=== PATIENT | female | born 1985 | race Caucasian/White ===

== ENCOUNTER → 2022-03-22 09:53 | Outpatient (CLI) | payer OTHER, SELFPAY ==
--- NOTE | 2022-03-22 | DI.US.S_ITS ---
PROCEDURE: US PELVIC COMPLETE INDICATIONS: Pelvic and perineal pain TECHNIQUE: Real-time scanning was performed of the pelvic organs, with image documentation. Additional endovaginal scanning was necessary due to incomplete visualization of the adnexal and endometrial structures by transabdominal scanning. COMPARISON: None. FINDINGS: Uterus: Uterus is retroverted and normal in size at 7.9 x 4.6 x 6.2 cm. The myometrium is homogeneous. The endometrium measures 9 mm combined thickness. There is 1.1 x 0.8 x 0.9 cm intramural cyst in the posterior uterine wall at midline. Ovaries: The right ovary measures 0.8 x 2.0 x 0.8 cm, with a calculated ovarian volume of 0.6 cc. The left ovary measures 3.1 x 4.4 x 2.9 cm, with a calculated ovarian volume of 20.5 cc. The ovaries have a normal sonographic appearance. There is a 3.3 x 2.3 x 2.6 cm simple cyst in left ovary. Less than 12 follicles can be seen in each ovary. No adnexal masses are seen. Other: No pathologic free abdominal or pelvic fluid. IMPRESSION: 1. A small intramural fibroid in uterus. 2. A 3.3 x 2.3 x 2.6 cm simple cyst in the left ovary. Consider ultrasound follow-up in 6-12 weeks if clinical symptoms persist. 3. No free fluid in pelvis. We strive to produce accurate, complete, and clear reports of imaging services. To assist us in improving patient care, this report was composed using standard report templates and voice recognition software. Therefore, it may contain abnormal punctuation, insertions and/or omissions. Occasional wrong-word or sound-alike substitutions may occur. Though we review the report and make efforts to correct it, we do recommend that the report be read carefully in proper context to recognize any text inaccuracies. Dictated by: Kal Birmingham M.D. on 03/22/2022 at 12:01 Approved by: Kal Birmingham M.D. on 03/22/2022 at 12:05
== END ==
PROVIDERS: PCP Family Medicine; Referring Provider Physician Assistant Medical; Visit Provider Physician Assistant Medical
DX: D25.1 Intramural leiomyoma of uterus (principal); N83.292 Other ovarian cyst, left side; R10.2 Pelvic and perineal pain
CPT/HCPCS: 76830; 76856; 93975

== ENCOUNTER 2022-08-23 09:53 | Day surgery (SDC) | payer OTHER, SELFPAY ==
[2022-08-18 12:56] VITALS: BMI 29.9
[2022-08-23] VITALS (9 sets, daily range): BP systolic 115–138; BP diastolic 72–85; PULSE 65–115; RESP 13–18; TEMP 36.3–36.6; O2SAT 95–100; BMI 28.3
--- NOTE | 2022-08-23 | PATH_ITS ---
[facility] Accession Number: [id number] No. of containers..01 Tissue . 01 Material submitted: . gallbladder - GALLBLADDER . 01 Diagnosis: Gallbladder, Cholecystectomy: Cholelithiasis with mild chronic cholecystitis. No evidence of neoplasm. MRV 08/31/2022 1526 Local . 01 Electronically signed: . Jc Ballard MD, PhD, Pathologist NPI- [id number] . 01 Gross description: . The specimen is received in formalin labeled with the patient's name, , and gallbladder consists of an intact gallbladder measuring 9.8 x 3.9 x 3.5 cm with an unremarkable external surface. The cystic duct is received patent, is inked blue, and no pericystic lymph node is identified. The lumen is filled with orange to brown, faceted calculi measuring up to 1.7 cm in greatest dimension grossly obstructing the cystic duct, and admixed with dark green mucoid bile. The mucosa is green and trabecula with no pinpoint yellow areas, polyps, or lesions identified. The castañeda average 0.1 cm thick. Exhibit Cleaner sections to include the cystic duct margin and full-thickness sections are submitted in cassette A1. ([id number]) /MRV 08/26/2022 1547 Local . 01 Pathologist provided ICD-10: K80.10 . 01 CPT . 487244 Specimen Comment: A courtesy copy of this report has been sent to [phone] Performed at: 01 [facility] [address] [place] [address], [place], [place] [id number] MD Ramsey Wellington MD Phone: [phone]
[2022-08-23] MEDS: SCOPOLAMINE 1 PATCH TOP (13:22)
[2022-08-23] MEDS: LACTATED RINGERS 1,000 ML 42 ML IV (13:24)
--- NOTE | 2022-08-23 15:26 | P.HP_ITS ---
History of Present Illness History of Present Illness Date Patient Seen: 08/23/22 Time Patient Seen: 15:26 Chief complaint: [facility] Narrative: Lucita is a 29-year-old woman with cholelithiasis. We discussed her condition in June over the telephone. Please see the telephone encounter for details. Since then, she has not had any major painful episodes. [facility] Medical History (Updated 08/18/22 @ 12:58 by Rosemarie Diaz RN) Anxiety Family history of breast cancer in first degree relative History of COVID-19 (10/2021) Surgical History (Updated 08/18/22 @ 12:59 by Rosemarie Diaz RN) H/O section History of laparoscopy Hx of abdominoplasty (2015) S/P tubal ligation Social History household members: spouse Smoking Status: Never smoker alcohol intake: current Meds Home Medications and Allergies Home Medications Medication Instructions Recorded Confirmed Type norethindrone-e.estradiol 1 tab PO DAILY 12/23/20 06/22/22 History triphasic 0.5 mg/0.75 mg/1 mg-35 mcg tablet (Alyacen (28)) spironolactone 25 mg tablet 25 mg PO DAILY 12/23/20 06/22/22 History Allergies Allergy/AdvReac Type Severity Reaction Status Date / Time hydrocodone [From Vicodin] Allergy Tongue and Verified 08/22/22 13:33 facial swelling Sulfa (Sulfonamide Allergy Feels Verified 08/22/22 13:33 Antibiotics) like sunburn Exam Vital Signs (past 8 hours): - 08/23/22 13:07 Temperature 97.6 F Pulse Rate 75 Respiratory Rate 18 Blood Pressure 127/79 Pulse Oximetry 98 Oxygen Delivery Method Room Air Oxygen Delivery Method Room Air Const General: No acute distress GI Palpation: soft Assessment & Plan Assessment and plan (1) Cholelithiasis: Qualifiers: Cholelithiasis location: gallbladder Cholecystitis presence: without cholecystitis Biliary obstruction: without biliary obstruction Qualified Code(s): K80.20 - Calculus of gallbladder without cholecystitis without obstruction Status: Acute Plan Lucita is a 37-year-old woman with cholelithiasis. We reviewed the risks and benefits of laparoscopic cholecystectomy for cholelithiasis and she would like to proceed.
[2022-08-23] MEDS: CEFAZOLIN 2 GM/100 ML PREMIX 100 ML IV (16:01)
[2022-08-23] MEDS: ACETAMINOPHEN IV 1,000 MG/100 ML VIAL 400 MG IV (16:07)
--- NOTE | 2022-08-23 16:12 | SUR.OPER ---
Supine on padded OR bed, head on pillow, arms secured on padded arm boards at <90 degrees abduction, legs uncrossed, safety belt at thigh, tape over blanket over lower legs.
[2022-08-23] MEDS: BUPIVACAINE 0.5% (PF) 10 ML VIAL INJ (16:36)
[2022-08-23] MEDS: EPINEPHrine 1 MG/ML 0.15 MG INJ (16:36)
--- NOTE | 2022-08-23 17:04 | P.OP_ITS ---
Operative Date/Time/Diagnoses Date of procedure: 08/23/22 Time of procedure: 17:04 Pre-op diagnosis: Symptomatic cholelithiasis Post-op diagnosis: same Procedure & Clinicians Procedure: Laparoscopic cholecystectomy Same procedure as scheduled: Yes Surgeon: Celso Dhaliwal Career Counselor: Jared Marks Operative Notes Procedure in detail: The patient was given preoperative antibiotic. The patient was brought to the operating room, placed on the table in the supine position. General endotracheal anesthesia was induced. The abdomen was prepped and draped. A time-out was performed. We made a 1 cm infraumbilical incision. We dissected down to the base of the umbilical stalk using cautery. We grasped the umbilical stalk with a Ezra clamp to elevate the abdominal wall. We scored the fascia in the midline with cautery 1 cm. We pierced the peritoneum with a Peon clamp. The Michelle port was placed and the abdomen was insufflated to 15 mmHg. A 5 mm 30 degree laparoscopic was inserted. There was no evidence of any injury from the entry. Next, we placed 5 mm ports in the subxiphoid position and right upper quadrant at the midclavicular line and anterior axillary line. Patient was then positioned in reverse Trendelenburg and the table was tilted to the left. The gallbladder was grasped at the dome and retracted cephalad. The gallbladder was quite full of stones but was able to be grasped without decompression. We then dissected the cystic structures with a combination of hook cautery and blunt dissection. We obtained a critical view. We placed clips on the cystic duct and artery and divided the cystic duct and artery sharply between the clips. The gallbladder was then dissected off the liver and placed in a specimen retrieval bag. We irrigated the right upper quadrant and all the aspirate returned clear. We then removed the 5 mm ports under direct vision we removed the Michelle port. In order to extract the specimen we had to extend the fascial defect to about 3 cm. We then injected some local into the fascia and closed the fascia with 4 interrupted 0 Vicryl sutures. The skin incisions were closed with 4-0 Monocryl and Steri-Strips were applied. Band- Aids were applied over the Steri-Strips. EBL: 15 mL Specimen: Gallbladder Post-operative Condition: stable Disposition: PACU
[2022-08-23] MEDS: ONDANSETRON 4 MG/2 ML INJ IV (18:15)
[2022-08-23] MEDS: hydrOXYzine 50 MG/ML INJ 25 MG IM (18:54)
== END 2022-08-23 19:39 | disposition home or self-care (01) ==
PROVIDERS: PCP Family Medicine; Referring Provider Surgery; Visit Provider Surgery
PROC: 0FT44ZZ Resection of Gallbladder, Percutaneous Endoscopic Approach (ICD-10-PCS; CPT 47562; principal; 2022-08-23 13:45)
DX: K80.20 Calculus of gallbladder without cholecystitis without obstruction (principal)
CPT/HCPCS: 47562; J0131; J0171; J0690; J1100; J1170; J1885; J2250; J2405; J2704; J3010; J3410; J3490

== ENCOUNTER 2024-04-04 10:08 | Day surgery (SDC) | payer OTHER, SELFPAY ==
--- NOTE | 2024-04-04 | PATH_ITS ---
[facility] Accession Number: [id number] No. of containers..02 Tissue . 01 Material submitted: . PART A: duodenum - DUODENAL PART B: stomach - ANTRAL . 01 Diagnosis: Part A: DUODENAL: Duodenal mucosa with no diagnostic alterations. No active inflammation and no evidence of celiac disease. . Part B: ANTRAL: Gastric mucosa with mild chronic inflammation. No Helicobacter organisms identified. No intestinal metaplasia, dysplasia, or malignancy identified. STO 04/09/2024 160 Local . 01 Electronically signed: . Ramsey Wellington MD, Pathologist NPI- [id number] . 01 Gross description: . A. Received in formalin with two patient identifiers and duodenal biopsy, are two jimenez to yellow soft tissue fragments both measuring 0.3 cm in greatest dimension, submitted in A1. . B. Received in formalin with two patient identifiers and antral biopsy, is a single jimenez soft tissue fragment, 0.4 cm in greatest dimension, submitted in B1. ([id number]) /MRV 04/09/2024 1602 Local . 01 Microscopic: . Part B: ANTRAL: An immunohistochemical stain was performed to evaluate for Helicobacter organisms and is negative. The control stains appropriately. * This test was developed and the performance characteristics were validated by [facility]. It has not been cleared or approved by the Food and Drug Administration. . 01 Pathologist provided ICD-10: K29.50 . 01 CPT . 875847, 314112, E88848 Specimen Comment: A courtesy copy of this report has been sent to [phone] Performed at: [address] [facility], [place], [place] [id number] MD Ramsey Wellington MD Phone: [phone]
[2024-04-04] MEDS: SODIUM CHLORIDE 0.9% 1,000 ML 150 ML IV (10:23)
--- NOTE | 2024-04-04 10:37 | PM.HP.1 ---
History of Present Illness History of Present Illness Date Patient Seen: 04/04/24 Time Patient Seen: 10:37 Chief complaint: SDC Narrative: Lucita is a 39 year old woman here for EGD due to dysphagia. See office note for more details. [facility] History Anxiety Family history of breast cancer in first degree relative History of COVID-19 (10/2021) Surgical History H/O section History of laparoscopy Hx of abdominoplasty (2015) S/P tubal ligation Social History household members: spouse Smoking Status: Never smoker alcohol intake: current Meds Home Medications and Allergies Home Medications Medication Instructions Recorded Confirmed Type spironolactone 25 mg tablet 25 mg PO DAILY 12/23/20 02/12/24 History flibanserin 100 mg tablet (Addyi) 100 mg PO BEDTIME 02/12/24 02/12/24 History ketorolac 10 mg tablet 10 mg PO Q6H PRN 02/12/24 02/12/24 History omeprazole 40 mg capsule,delayed 40 mg PO DAILY 02/12/24 02/12/24 History release progesterone micronized 100 mg 100 mg PO QAM 02/12/24 02/12/24 History capsule omeprazole 40 mg capsule,delayed 40 mg PO QAM 04/04/24 04/04/24 History release Allergies Allergy/AdvReac Type Severity Reaction Status Date / Time hydrocodone [From Vicodin] Allergy Tongue and Verified 04/04/24 10:36 facial swelling Sulfa (Sulfonamide Allergy Feels Verified 04/04/24 10:36 Antibiotics) like sunburn Exam Const General: healthy appearing Resp Effort & Inspection: normal respiratory effort Assessment & Plan Assessment and plan (1) Dysphagia: Qualifiers: Dysphagia type: esophageal phase Qualified Code(s): R13.19 - Other dysphagia Status: Acute Plan EGD Time-Based Coding :: [TOTAL MINUTES] spent with patient and on the chart (including review of chart, obtaining history, exam, reviewing outside data, placing orders, documenting exam and treatment plan, and counseling patient) on [DATE].
[2024-04-04 10:39] VITALS: BP 115/75; PULSE 101; RESP 16; TEMP 36.6; O2SAT 98
--- NOTE | 2024-04-04 11:09 | PM.OP.EGD ---
Operative Date/Time/Diagnoses Date of procedure: 04/04/24 Time of procedure: 11:09 Pre-op diagnosis: Dysphagia Post-op diagnosis: same Procedure & Clinicians Study performed: Esophagogastroduodenoscopy Same procedure as scheduled: Yes Surgeon: Celso Dhaliwal Procedure Notes Procedure in detail: Surgeon: Celso Dhaliwal MD Anesthesia: Noemi Fernandez timeout was performed. A bite blocked was placed. The patient was positioned in the left lateral decubitus position. Anesthesia was administered. The endoscope was inserted through the bite block and passed through the esophagus and stomach and into the duodenum. The duodenal mucosa appeared normal. Random biopsies were taken from the duodenal mucosa with cold forceps. The scope was withdrawn into the duodenal bulb and no abnormalities were seen. The scope was withdrawn into the stomach. No gross abnormalities were seen. Random biopsies were taken from the antrum with cold forceps. The rest of the stomach was normal. The scope was retroflexed and no hiatal hernia was noted. The scope was withdrawn into the esophagus and no abnormalities were seen in the esophagus. The remainder of the esophagus was normal. The scope was withdrawn. The patient was awakened and brought to recovery. Sedation time: 4 minutes Findings: Grossly normal EGD Post-procedure Disposition: PACU
[2024-04-04 11:13] VITALS: BP 108/75; PULSE 86; RESP 16; TEMP 36.7; O2SAT 97
[2024-04-04 11:17] VITALS: BP 108/70; PULSE 86; RESP 16; O2SAT 98
[2024-04-04 11:23] VITALS: BP 112/70; PULSE 67; RESP 16; TEMP 36.6; O2SAT 98
== END 2024-04-04 11:44 | disposition home or self-care (01) ==
PROVIDERS: PCP Family Medicine; Referring Provider Surgery; Visit Provider Surgery
PROC: 0DJ08ZZ Inspection of Upper Intestinal Tract, Via Natural or Artificial Opening Endoscopic (ICD-10-PCS; CPT 43235; principal; 2024-04-04 11:00)
DX: R13.10 Dysphagia, unspecified (principal)
CPT/HCPCS: 43235; 36415; J2704

== ENCOUNTER → 2024-05-06 14:32 | Outpatient (CLI) | payer OTHER, SELFPAY ==
[2024-05-06 15:00] LABS: Add Manual Diff / Slide Review NO; Basophils Absolute Auto 100 /uL (0-100); Basophils Percent Auto 0.7 % (0-2); Eosinophils Absolute Auto 200 /uL (0-450); Eosinophils Percent Auto 2.2 % (2-4); Hemoglobin 11.6 g/dL (12.0-16.0); Lymphocytes Absolute Auto 2900 /uL (1100-4500); Lymphocytes Percent Auto 32.3 % (25-40); Mean Corpuscular HGB Conc 34.2 % (30-36); Mean Corpuscular Hemoglobin 29.5 PG (26-34); Mean Corpuscular Volume 86.3 fL (80-100); Monocytes Absolute Auto 500 /uL (0-900); Monocytes Percent Auto 5.8 % (3-14); Neutrophils Absolute Auto 5300 /uL (1500-7000); Platelet Count 366 X10^3/uL (150-400); Red Blood Cell Count 3.94 X10^6/uL (4.0-5.2); Red Cell Distribution Width 13.3 % (11.6-14.8)
[2024-05-06 15:36] LABS: Free T4, Direct Thyroxine 0.82 ng/dL (0.78-2.19)
[2024-05-06 15:50] LABS: Thyroid Stimulating Hormone 1.63 uIU/mL (0.47-4.68)
== END ==
PROVIDERS: PCP Family Medicine; Referring Provider Obstetrics & Gynecology; Visit Provider Obstetrics & Gynecology
DX: N93.9 Abnormal uterine and vaginal bleeding, unspecified (principal)
CPT/HCPCS: 36415; 84439; 84443; 85025

== ENCOUNTER 2024-05-16 12:56 | Emergency (ER) | payer OTHER, SELFPAY ==
[2024-05-16 13:05] VITALS: BP 138/89; PULSE 97; RESP 19; O2SAT 99; BMI 31.6
[2024-05-16 13:12] VITALS: TEMP 36.8
[2024-05-16 13:43] LABS: BUN Creatinine Ratio 13.9 (6-22); Blood Urea Nitrogen 11 mg/dL (7-17); Calcium 8.6 mg/dL (8.4-10.2); Carbon Dioxide 20 mmol/L (22-32); Chloride 107 mmol/L (98-107); Estimated Glomerular Filt Rate > 60 mL/min (>60); Glucose 128 mg/dL (70-100); HEMOLYSIS < 15 (0-50); Potassium 3.9 mmol/L (3.4-5.1); Sodium 135 mmol/L (137-145)
[2024-05-16 13:48] LABS: Add Manual Diff / Slide Review NO; Basophils Absolute Auto 100 /uL (0-100); Basophils Percent Auto 0.6 % (0-2); Eosinophils Absolute Auto 100 /uL (0-450); Eosinophils Percent Auto 0.8 % (2-4); Hematocrit 30.9 % (36-46); Hemoglobin 10.4 g/dL (12.0-16.0); Lymphocytes Absolute Auto 2800 /uL (1100-4500); Mean Corpuscular HGB Conc 33.8 % (30-36); Mean Corpuscular Hemoglobin 29.4 PG (26-34); Mean Corpuscular Volume 87.1 fL (80-100); Monocytes Absolute Auto 400 /uL (0-900); Neutrophils Absolute Auto 7400 /uL (1500-7000); Neutrophils Percent Auto 68.6 % (50-75); Platelet Count 336 X10^3/uL (150-400); Red Blood Cell Count 3.55 X10^6/uL (4.0-5.2); Red Cell Distribution Width 13.8 % (11.6-14.8); White Blood Cell Count 10.8 X10^3/uL (4.5-11.0)
[2024-05-16 13:52] LABS: Bilirubin Urine UA NEGATIVE (NEGATIVE); Color Urine UA RED; Glucose Urine UA NEGATIVE (Negative); Ketones Urine UA NEGATIVE (NEGATIVE); Leukocyte Esterase Urine UA NEGATIVE (NEGATIVE); Nitrite Urine UA NEGATIVE (Negative); Occult Blood Urine UA 3+ (Negative); Protein Urine UA 3+ (Negative); Specific Gravity Urine UA >=1.030 (1.000-1.035); Urobilinogen Urine UA 0.2 E.U./dL (0.2)
[2024-05-16 13:55] LABS: Appearance Urine UA TURBID
[2024-05-16 13:55] LABS: INR 1.1 (0.9-1.3)
[2024-05-16 13:56] LABS: Bacteria Urine Few (2-10); Culture Indicated Urine Specimen Cultured; RBC Urine >100/HPF (0-5/HPF); Squamous Epithelial Cell Urine 1-5 /HPF (0-5/HPF); Urine Volume 10mL (spun); WBC Urine 5-10/HPF (0-5/HPF)
[2024-05-16 13:58] LABS: PTT Partial Thromboplastin Tim 34 SECONDS (25.1-36.5)
--- NOTE | 2024-05-16 17:20 | ED_ITS ---
HPI - Female Genitourinary <Renetta West PA-C - Last Filed: 05/16/24 20:57> General Chief complaint: Vaginal Bleeding Stated complaint: vaginal bleeding [id number] Time Seen by Provider: 05/16/24 16:13 Source: patient Mode of arrival: Ambulatory History of Present Illness HPI Narrative: Ms. Grimes is a very pleasant 39-year-old female with a past medical history of endometriosis, PCOS, AUB, ovarian cysts, cholecystectomy who presents to the emergency department for heavy vaginal bleeding x [address] Leisa Castro. She has irregular menstrual periods however this month she has had heavy bleeding, soaking through a pad or tampon greater than every hour, clots, lower abdominal cramping. She saw her OBGYN on 05/06/2024 and she went on 1 week of medroxyprogesterone at that time, it did not work so on Monday this week she went on a 3 day OCP taper. States that when she took 3 control pills on the 1st day the bleeding decreased for a few hours however since then the bleeding has gotten heavy again. At this point she would like hysterectomy. She is feeling fatigued, lightheaded, exhausted. Denies dysuria, vaginal discharge, concern for STD, constipation, diarrhea, shortness of breath, fevers, chills. History of cholecystectomy, multiple endometriosis laparoscopies, 3 C sections. Related Data Home Medications Medication Instructions Recorded Confirmed spironolactone 25 mg tablet 25 mg PO DAILY 12/23/20 05/06/24 flibanserin 100 mg tablet (Addyi) 100 mg PO BEDTIME 02/12/24 05/06/24 ketorolac 10 mg tablet 10 mg PO Q6H PRN 02/12/24 05/06/24 omeprazole 40 mg capsule,delayed 40 mg PO DAILY 02/12/24 05/06/24 release progesterone micronized 100 mg 100 mg PO QAM 02/12/24 05/06/24 capsule omeprazole 40 mg capsule,delayed 40 mg PO QAM 04/04/24 05/06/24 release Previous Rx's Medication Instructions Recorded medroxyprogesterone 10 mg tablet 10 mg PO DAILY #10 tabs 05/06/24 naproxen 500 mg tablet 500 mg PO BID #14 tabs 05/06/24 norgestimate 0.25 mg-ethinyl 1 tab PO DAILY #84 tabs 05/14/24 estradiol 35 mcg tablet (Sprintec (28)) ondansetron 4 mg disintegrating 4 mg PO Q6H PRN nausea and 05/14/24 tablet vomiting #7 tabs Allergies Allergy/AdvReac Type Severity Reaction Status Date / Time hydrocodone [From Vicodin] Allergy Tongue and Verified 05/06/24 13:36 facial swelling Sulfa (Sulfonamide Allergy Feels Verified 05/06/24 13:36 Antibiotics) like sunburn Review of Systems <Renetta West PA-C - Last Filed: 05/16/24 20:57> Review of Systems ROS Unobtainable: All systems reviewed & are unremarkable except as noted in HPI and below Patient History <Renetta West PA-C - Last Filed: 05/16/24 20:57> Medical History Abnormal uterine bleeding (AUB) History of COVID-19 (10/2021) Anxiety Family history of breast cancer in first degree relative Surgical History History of laparoscopy Hx of abdominoplasty (2015) S/P tubal ligation H/O section Exam <Renetta West PA-C - Last Filed: 05/16/24 20:57> Narrative Exam Narrative: GENERAL: 39 year old patient appears stated age. Well-developed patient, in no acute distress. HEAD: Atraumatic. Normocephalic. NECK: Trachea midline. Cervical ROM intact. CARDIOVASCULAR: Regular rate and rhythm. RESPIRATORY: ?Nonlabored respirations. ?Speaking in clear, full sentences. ?Clear to auscultation. GASTROINTESTINAL: Abdomen soft, non-tender, nondistended. Normal bowel sounds. Surgical scars present. Pelvic: Patient gave verbal consent for pelvic exam. Nurse Kumari chaperoned exam. Two scopettes with menstrual blood and 1 cm clot removed from vaginal vault. After bearing down, the patient had about half of a scopette of slow ooze bleeding from os. No tenderness on bimanual exam, no cervical motion tenderness. EXTREMITIES: No edema or joint tenderness. BACK: NO CVA tenderness NEURO: AOx3. ?Clear speech. ?Moves all 4 extremities appropriately. SKIN: No rash or erythema of visible areas Initial Vital Signs Initial Vital Signs: Vital Signs Pulse Rate 97 H 05/16/24 13:05 Respiratory Rate 19 05/16/24 13:05 Blood Pressure 138/89 05/16/24 13:05 Pulse Oximetry 99 05/16/24 13:05 Oxygen Delivery Method Room Air 05/16/24 13:05 <Juan Luis Trevino MD - Last Filed: 05/17/24 05:21> Initial Vital Signs Initial Vital Signs: Vital Signs Pulse Rate 97 H 05/16/24 13:05 Respiratory Rate 19 05/16/24 13:05 Blood Pressure 138/89 05/16/24 13:05 Pulse Oximetry 99 05/16/24 13:05 Oxygen Delivery Method Room Air 05/16/24 13:05 Course <Renetta West PA-C - Last Filed: 05/16/24 20:57> Orders Ordered: Discontinued Medications Tranexamic Acid 1,000 mg/ (Sodium Chloride) 100 mls @ 200 mls/hr IV NOW ONE Stop: 05/16/24 19:52 Last Infusion: 05/16/24 20:29 Dose: Infused Documented By: Admin: 05/16/24 19:45 Dose: 200 mls/hr Documented By: DAMION Ketorolac Tromethamine (Ketorolac 30 Mg/Ml Vial) 15 mg IV NOW ONE Stop: 05/16/24 17:51 Last Admin: 05/16/24 18:04 Dose: 15 mg Documented By: DAMION Ondansetron HCl (Ondansetron 4 Mg Odt Prepack) 1 bottle MISC DIRECTED ONE Stop: 05/16/24 20:31 Last Admin: 05/16/24 20:43 Dose: 1 bottle Documented By: DAMION Consultations Consultation #1: Discussed case with OBGYN on-call Dr. Naidu, transvaginal ultrasound results pending at this time however patient is trying to potentially make a Door home. Discussed the patient case, her physical exam, her lab work, her prior visit with Dr. Castro on 05/06/24. He recommends the patient receive 1000 mg of IV TXA in the emergency department at this time. Would then like her to take 3 OCPs at home tonight, 3 OCPs in the morning, and follow up in the clinic tomorrow. His staff will plan to call her for evaluation in the clinic tomorrow. Time: 19:05 Consultation #2: After transvaginal ultrasound results reported, I reached back out to OBGYN on- call Dr. Naidu. Discussed the transvaginal ultrasound report. No change in plan, he would like the patient to be seen in office tomorrow. She has received TXA, and continue plan for 3 OCPs tonight and 3 OCPs in the morning. Time: 20:00 Vital Signs Vital signs: Vital Signs - 8 hr 05/16/24 13:05 05/16/24 13:12 Temperature 98.2 F Pulse Rate 97 H Respiratory Rate 19 Blood Pressure 138/89 Pulse Oximetry 99 Oxygen Delivery Method Room Air <Juan Luis Trevino MD - Last Filed: 05/17/24 05:21> Orders Ordered: Discontinued Medications Tranexamic Acid 1,000 mg/ (Sodium Chloride) 100 mls @ 200 mls/hr IV NOW ONE Stop: 05/16/24 19:52 Last Infusion: 05/16/24 20:29 Dose: Infused Documented By: Admin: 05/16/24 19:45 Dose: 200 mls/hr Documented By: DAMION Ketorolac Tromethamine (Ketorolac 30 Mg/Ml Vial) 15 mg IV NOW ONE Stop: 05/16/24 17:51 Last Admin: 05/16/24 18:04 Dose: 15 mg Documented By: DAMION Ondansetron HCl (Ondansetron 4 Mg Odt Prepack) 1 bottle MISC DIRECTED ONE Stop: 05/16/24 20:31 Last Admin: 05/16/24 20:43 Dose: 1 bottle Documented By: DAMION Vital Signs Vital signs: Vital Signs - 8 hr 05/16/24 13:05 05/16/24 13:12 Temperature 98.2 F Pulse Rate 97 H Respiratory Rate 19 Blood Pressure 138/89 Pulse Oximetry 99 Oxygen Delivery Method Room Air MDM - Female Genitourinary <Renetta West PA-C - Last Filed: 05/16/24 20:57> Medical Records Attestation: I reviewed the patient's medical records. Lab Data 05/16/24 13:20 05/16/24 13:20 Labs: Lab Results 05/16/24 05/16/24 Range/Units 13:20 13:30 WBC 10.8 (4.5-11.0) X10^3/uL RBC 3.55 L (4.0-5.2) X10^6/uL Hgb 10.4 L (12.0-16.0) g/dL Hct 30.9 L (36-46) % MCV 87.1 (80-100) fL MCH 29.4 (26-34) PG MCHC 33.8 (30-36) % RDW 13.8 (11.6-14.8) % Plt Count 336 (150-400) X10^3/uL Neut % (Auto) 68.6 (50-75) % Lymph % (Auto) 26.0 (25-40) % [place] % (Auto) 4.0 (3-14) % Eos % (Auto) 0.8 L (2-4) % Baso % (Auto) 0.6 (0-2) % Neut # (Auto) 7400 H (1168-4905) /uL Lymph # (Auto) 2800 (5107-9224) /uL [place] # (Auto) 400 (0-900) /uL Eos # (Auto) 100 (0-450) /uL Baso # (Auto) 100 (0-100) /uL PT 13.0 H (9.4-12.5) SECONDS INR 1.1 (0.9-1.3) APTT 34 (25.1-36.5) SECONDS Sodium 135 L (137-145) mmol/L Potassium 3.9 (3.4-5.1) mmol/L Chloride 107 (98-107) mmol/L Carbon Dioxide 20 L (22-32) mmol/L BUN 11 (7-17) mg/dL Creatinine 0.79 (0.52-1.04) mg/dL Estimated GFR > 60 (>60) mL/min BUN/Creatinine Ratio 13.9 (6-22) Glucose 128 H (70-100) mg/dL Calcium 8.6 (8.4-10.2) mg/dL Urine Color Red Urine Appearance Turbid Urine pH 6.0 (4.5-8.0) Ur Specific [place] >=1.030 H (1.000-1.035) Urine Protein 3+ H (Negative) Urine Glucose (UA) Negative (Negative) g/dL Urine Ketones Negative (NEGATIVE) Urine Occult Blood 3+ H (Negative) Urine Nitrate Negative (Negative) Urine Bilirubin Negative (NEGATIVE) Urine Urobilinogen 0.2 (0.2) E.U./dL Ur Leukocyte Esterase Negative (NEGATIVE) Urine RBC >100/hpf H (0-5/HPF) Urine WBC 5-10/hpf H (0-5/HPF) Ur Squamous Epith Cells 1-5 /hpf (0-5/HPF) Urine Bacteria Few (2-10) H (None) Ur Culture Indicated? Specimen cultured Vol Urine Centrifuged 10ml (spun) Blood Type O Positive Antibody Screen Negative Point of Care Testing Test Results Negative Imaging Data TVUS: Radiologist's Impression: PROCEDURE: US PELVIC COMPLETE INDICATIONS: vaginal bleeding heavy x 27 days TECHNIQUE: Real-time scanning was performed of the pelvic organs, with image documentation. Additional endovaginal scanning was necessary due to incomplete visualization of the adnexal and endometrial structures by transabdominal scanning. COMPARISON: [facility], , US PELVIC COMPLETE, 03/22/2022, 10:06. FINDINGS: Uterus: Uterus is retroverted and normal in size at 8.3 x 5.0 x 7.3 cm. The myometrium is mildly heterogenous with fibroids. The endometrium measures 22 mm in combined thickness and is hypervascular. There is a mid posterior intramural 1.3 x 0.6 x 1.0 cm fibroid. Ovaries: The right ovary measures 1.7 x 3.1 x 1.4 cm, with a calculated ovarian volume of 3.9 cc. The left ovary measures 2.3 x 1.4 x 1.7 cm, with a calculated ovarian volume of 2.9 cc. The ovaries have a normal sonographic appearance. Less than 12 follicles can be seen in each ovary. No adnexal masses are seen. Other: No pathologic free abdominal or pelvic fluid. IMPRESSION: 1. Increase endometrial thickness with hypervascularity. Gynecological consultation recommended for further evaluation. 2. Mid posterior intramural 1.3 cm fibroid. 3. No other sonographic abnormality of the uterus or ovaries. We strive to produce accurate, complete, and clear reports of imaging services. To assist us in improving patient care, this report was composed using standard report templates and voice recognition software. Therefore, it may contain abnormal punctuation, insertions and/or omissions. Occasional wrong-word or sound-alike substitutions may occur. Though we review the report and make efforts to correct it, we do recommend that the report be read carefully in proper context to recognize any text inaccuracies. [facility] Narrative Medical decision making narrative: 39-year-old female with a past medical history of endometriosis, PCOS, AUB, ovarian cysts, cholecystectomy who presents to the emergency department for heavy vaginal bleeding x 27 days. Her mother contributes to the history. Differential diagnosis includes but isn't limited to endometrial hyperplasia, malignancy, endometriosis, anemia, ovarian cyst, fibroids, cervical polyp, miscarriage, menorrhagia, menometrorrhagia, etc. On exam the patient is in no acute distress, nontoxic appearing, vital signs overall within normal limits with only slight elevation of heart rate at 97. Patient's abdomen is soft and nontender, pelvic exam reveals blood and large clot in the vaginal vault but no gross increase in blood/hemorrhage. Lab work was obtained in triage, test negative. Transvaginal ultrasound added in addition to Toradol for pain. TV [place]. reveals increased endometrial thickness with hypervascularity, mid posterior intramural 1.3 cm fibroid, no other sonographic abnormality of the uterus or ovaries. Labs reveal normal WBC count of 10.8, RBC 3.55, hemoglobin 10.4, hematocrit 30.9. These values are 05/06/24 where they were RBC of 3.94, hemoglobin of 11.6, hematocrit of 34.0. Normal platelets 336. PT is slightly increased at 13.0, INR normal at 1.1, APTT normal at 34 seconds. Normal renal function, urinalysis primarily with blood, specimen was cultured however patient having no dysuria. OBGYN on-call Dr. Naidu was consulted, patient case discussed both before and after final result of her transvaginal ultrasound. Based on his recommendations, the patient was treated with 1000 mg of IV TXA, advised to take 3 OCPs tonight, 3 OCPs tomorrow morning, and follow up tomorrow in office with OBGYN. Discussed risks of TXA with the patient and provided her with printed patient copy of Lexicompa TXA Patirnt information, she consented to treatment and had no adverse reactions in the emergency department. She is agreeable to the plan, strict ED return precautions discussed, she is stable for discharge home. Patient does live on [place] but will be staying in a hotel [facility]. <Juan Luis Trevino MD - Last Filed: 05/17/24 05:21> Lab Data Labs: Lab Results 05/16/24 05/16/24 Range/Units 13:20 13:30 WBC 10.8 (4.5-11.0) X10^3/uL RBC 3.55 L (4.0-5.2) X10^6/uL Hgb 10.4 L (12.0-16.0) g/dL Hct 30.9 L (36-46) % MCV 87.1 (80-100) fL MCH 29.4 (26-34) PG MCHC 33.8 (30-36) % RDW 13.8 (11.6-14.8) % Plt Count 336 (150-400) X10^3/uL Neut % (Auto) 68.6 (50-75) % Lymph % (Auto) 26.0 (25-40) % [place] % (Auto) 4.0 (3-14) % Eos % (Auto) 0.8 L (2-4) % Baso % (Auto) 0.6 (0-2) % Neut # (Auto) 7400 H (7680-9641) /uL Lymph # (Auto) 2800 (7464-8192) /uL [place] # (Auto) 400 (0-900) /uL Eos # (Auto) 100 (0-450) /uL Baso # (Auto) 100 (0-100) /uL PT 13.0 H (9.4-12.5) SECONDS INR 1.1 (0.9-1.3) APTT 34 (25.1-36.5) SECONDS Sodium 135 L (137-145) mmol/L Potassium 3.9 (3.4-5.1) mmol/L Chloride 107 (98-107) mmol/L Carbon Dioxide 20 L (22-32) mmol/L BUN 11 (7-17) mg/dL Creatinine 0.79 (0.52-1.04) mg/dL Estimated GFR > 60 (>60) mL/min BUN/Creatinine Ratio 13.9 (6-22) Glucose 128 H (70-100) mg/dL Calcium 8.6 (8.4-10.2) mg/dL Urine Color Red Urine Appearance Turbid Urine pH 6.0 (4.5-8.0) Ur Specific [place] >=1.030 H (1.000-1.035) Urine Protein 3+ H (Negative) Urine Glucose (UA) Negative (Negative) g/dL Urine Ketones Negative (NEGATIVE) Urine Occult Blood 3+ H (Negative) Urine Nitrate Negative (Negative) Urine Bilirubin Negative (NEGATIVE) Urine Urobilinogen 0.2 (0.2) E.U./dL Ur Leukocyte Esterase Negative (NEGATIVE) Urine RBC >100/hpf H (0-5/HPF) Urine WBC 5-10/hpf H (0-5/HPF) Ur Squamous Epith Cells 1-5 /hpf (0-5/HPF) Urine Bacteria Few (2-10) H (None) Ur Culture Indicated? Specimen cultured Vol Urine Centrifuged 10ml (spun) Blood Type O Positive Antibody Screen Negative Point of Care Testing Test Results Negative Discharge Plan Departure Patient Disposition: Home Clinical Impression: Menometrorrhagia, Thickened endometrium, Normocytic anemia Instructions: DI for Menorrhagia Activity Restrictions/Additional Instructions: Dear Ms. Grimes, Today you were evaluated for prolonged and heavy menstrual bleeding. We performed lab work, transvaginal ultrasound, and I consulted with the OBGYN on- call Dr. Naidu. You were treated with TXA which is a medication to help stop bleeding. Dr. Naidu would like you to take 3 oral contraceptive pills tonight before bed, and 3 oral contraceptive pills in the morning. The OBGYN office will call you in the morning and they will see you in the office tomorrow. If you do not hear from the office you can call them at [phone]. Please rest, hydrate, return to the emergency department immediately if you develop any new or worsening symptoms or other concerns. The plan is for you to be seen by Dr. Naidu or Dr. Castro tomorrow in the office Please follow up with your primary care doctor within the next 2-3 days for ER follow-up. (If you do not have a PCP you can call [phone]. ?to schedule an appointment with an [facility] Primary Care Provider) IF YOU DEVELOP ANY NEW OR WORSENING SYMPTOMS, RETURN TO THE ER! Please read the attached instructions, they highlight more specific treatments and interventions for you at home. Thank you for letting me participate in your care, Renetta West PA-C Prescriptions: No Action norgestimate-ethinyl estradiol [Sprintec (28)] 0.25-35 mg-mcg tablet 1 tab PO DAILY Qty: 84 0RF Rx Instructions: take one tablet by mouth three times daily for the first day, then twice daily for two days, then once daily until the end of the pill pack. ondansetron 4 mg tablet,disintegrating 4 mg PO Q6H PRN (Reason: nausea and vomiting) Qty: 7 0RF medroxyprogesterone 10 mg tablet 10 mg PO DAILY Qty: 10 0RF naproxen 500 mg tablet 500 mg PO BID Qty: 14 0RF Rx Instructions: take one tablet by mouth daily when having menstrual bleeding spironolactone 25 mg tablet 25 mg PO DAILY ketorolac 10 mg tablet 10 mg PO Q6H PRN progesterone micronized 100 mg capsule 100 mg PO QAM Rx Instructions: off 7 days; repeat cycle Addyi 100 mg tablet 100 mg PO BEDTIME omeprazole 40 mg capsule,delayed release(DR/EC) 40 mg PO DAILY omeprazole 40 mg capsule,delayed release(DR/EC) 40 mg PO QAM Referrals: Lang Pantoja MD [Primary Care Provider] - Jluis Naidu MD [Physician] - (seen in ED 05/16/24 for heavy vaginal bleeding, needs office appointment 05/17/24) Stand Alone Forms: Patient Portal/API/Survey ED Sign-out <Juan Luis Trevino MD - Last Filed: 05/17/24 05:21> Cosign ED Attending Cosignature Attestation: I was immediately available in the department for consultation. This documentation has been reviewed and I agree with assessment and plan. Supervised by Juan Luis Trevino MD
--- NOTE | 2024-05-16 17:50 | DI.US.S_ITS ---
PROCEDURE: US PELVIC COMPLETE INDICATIONS: vaginal bleeding heavy x 27 days TECHNIQUE: Real-time scanning was performed of the pelvic organs, with image documentation. Additional endovaginal scanning was necessary due to incomplete visualization of the adnexal and endometrial structures by transabdominal scanning. COMPARISON: [facility], US, US PELVIC COMPLETE, 03/22/2022, 10:06. FINDINGS: Uterus: Uterus is retroverted and normal in size at 8.3 x 5.0 x 7.3 cm. The myometrium is mildly heterogenous with fibroids. The endometrium measures 22 mm in combined thickness and is hypervascular. There is a mid posterior intramural 1.3 x 0.6 x 1.0 cm fibroid. Ovaries: The right ovary measures 1.7 x 3.1 x 1.4 cm, with a calculated ovarian volume of 3.9 cc. The left ovary measures 2.3 x 1.4 x 1.7 cm, with a calculated ovarian volume of 2.9 cc. The ovaries have a normal sonographic appearance. Less than 12 follicles can be seen in each ovary. No adnexal masses are seen. Other: No pathologic free abdominal or pelvic fluid. IMPRESSION: 1. Increase endometrial thickness with hypervascularity. Gynecological consultation recommended for further evaluation. 2. Mid posterior intramural 1.3 cm fibroid. 3. No other sonographic abnormality of the uterus or ovaries. We strive to produce accurate, complete, and clear reports of imaging services. To assist us in improving patient care, this report was composed using standard report templates and voice recognition software. Therefore, it may contain abnormal punctuation, insertions and/or omissions. Occasional wrong-word or sound-alike substitutions may occur. Though we review the report and make efforts to correct it, we do recommend that the report be read carefully in proper context to recognize any text inaccuracies. Dictated by: Mateo Reid M.D. on 05/16/2024 at 19:17 Approved by: Mateo Reid M.D. on 05/16/2024 at 19:20
[2024-05-16] MEDS: KETOROLAC 30 MG/ML VIAL 15 MG IV (18:04)
[2024-05-16] MEDS: TRANEXAMIC ACID 1,000 MG in SODIUM CHLORIDE 0.9% 100 ML 200 MG IV (19:45)
[2024-05-16] MEDS: ONDANSETRON 4 MG ODT PREPACK 1 BOTTLE MISC (20:43)
[2024-05-16 20:55] VITALS: BP 124/75; PULSE 80; RESP 16; O2SAT 99
== END 2024-05-16 20:56 | disposition home or self-care (01) ==
PROVIDERS: Emergency Medicine; Emergency Provider Physician Assistant; PCP Family Medicine
DX: D64.9 Anemia, unspecified (principal); N92.1 Excessive and frequent menstruation with irregular cycle; R93.89 Abnormal findings on diagnostic imaging of other specified body structures; R10.30 Lower abdominal pain, unspecified; Z88.2 Allergy status to sulfonamides
CPT/HCPCS: 36415; 76856; 80048; 81001; 81025; 85025; 85610; 85730; 86850; 86900; 86901; 87086; 96365; 96375; 99283; 99284; J1885

== ENCOUNTER 2024-05-20 11:27 | Day surgery (SDC) | payer OTHER, SELFPAY ==
[2024-05-17 15:16] VITALS: BMI 29.1
[2024-05-20] VITALS (7 sets, daily range): BP systolic 94–124; BP diastolic 63–77; PULSE 76–95; RESP 13–20; TEMP 36.4–36.8; O2SAT 13–98; BMI 31.6
--- NOTE | 2024-05-20 | PATH_ITS ---
[facility] Accession Number: [id number] No. of containers..01 Tissue . 01 Material submitted: . endometrium - ENDOMETRIAL CURETTINGS . 01 Diagnosis: ENDOMETRIUM, CURETTINGS: Scant fragments of benign, weakly proliferative to inactive endometrium with focal changes suggestive of exogenous hormonal/progestin effect, please see comment. Fragments of benign cervical polyp (lower uterine segment/upper endocervical polyp). Negative for dysplasia or malignancy. MRV 05/22/2024 1546 Local . 01 Comment: As the endometrial tissue is scant, clinical and radiologic correlation will be required to ensure that this limited sample is adequate to evaluate for endometrial pathologies. . In this limited endometrial tissue, there is no atypia, hyperplasia, or malignancy. . As part of ongoing quality and reliability engineer, this case is also reviewed by Dr. Linda Lopes, who agrees with the interpretation. . 01 Electronically signed: . Cristi Martel MD, Pathologist NPI- [id number] . 01 Gross description: . ENDOMETRIAL CURETTINGS: Received in formalin are minute fragments of mucoid and hemorrhagic material measuring 3.0 x 3.0 x 0.2 cm in aggregate. Submitted in toto in 1 cassette. /MODESTA 05/21/2024 0051 Local . 01 Pathologist provided ICD-10: N93.0 . 01 CPT . 949518 Specimen Comment: A courtesy copy of this report has been sent to [phone] Performed at: [address] [id number] MD Ramsey Wellington MD Phone: [phone]
[2024-05-20] MEDS: LACTATED RINGERS 1,000 ML 21 ML IV (12:20)
[2024-05-20] MEDS: SCOPOLAMINE 1 PATCH TOP (13:05)
--- NOTE | 2024-05-20 13:53 | PM.GYNHP.1 ---
History of Present Illness History of Present Illness Reason for admission: vaginal bleeding (Abnormal) Narrative: Lucita Grimes is a 39 year old female 3 para 3 who presents for a D&C hysteroscopy with Mirena IUD placement due to abnormal uterine bleeding [facility] Medical History Abnormal uterine bleeding (AUB) History of COVID-19 (10/2021) Anxiety Family history of breast cancer in first degree relative Surgical History (Updated 05/17/24 @ 15:17 by Suzy Sanchez RN) Hx laparoscopic cholecystectomy (08/23/22) History of laparoscopy Hx of abdominoplasty (2015) S/P tubal ligation H/O section Social History household members: spouse Smoking Status: Never smoker alcohol intake: current Meds Home Medications and Allergies Home Medications Medication Instructions Recorded Confirmed Type spironolactone 25 mg tablet 25 mg PO DAILY 12/23/20 05/20/24 History ketorolac 10 mg tablet 10 mg PO Q6H PRN Pain (Scale Score 02/12/24 05/20/24 History 4-6) progesterone micronized 100 mg 100 mg PO QAM 02/12/24 05/20/24 History capsule medroxyprogesterone 10 mg tablet 10 mg PO DAILY #10 tabs 05/06/24 05/20/24 Rx norgestimate 0.25 mg-ethinyl 1 tab PO DAILY #84 tabs 05/14/24 05/20/24 Rx estradiol 35 mcg tablet (Sprintec (28)) ondansetron 4 mg disintegrating 4 mg PO Q6H PRN nausea and 05/14/24 05/20/24 Rx tablet vomiting #7 tabs Allergies Allergy/AdvReac Type Severity Reaction Status Date / Time hydrocodone [From Vicodin] Allergy Tongue and Verified 05/20/24 12:28 facial swelling Sulfa (Sulfonamide Allergy Feels Verified 05/20/24 12:28 Antibiotics) like sunburn Exam Vital Signs (past 8 hours): - 05/20/24 12:50 Temperature 98.3 F Pulse Rate 95 H Respiratory Rate 18 Blood Pressure 124/77 Pulse Oximetry 98 Oxygen Delivery Method Room Air Oxygen Delivery Method Room Air Narrative Exam Narrative: HEENT: No thyromegaly, no anterior cervical or supraclavicular lymphadenopathy. Lungs:Clear to auscultation bilaterally, no wheezes. Cardiovascular: Regular rate and rhythm, no murmurs, rubs, or gallops. Abdomen: Well-healed Pfannenstiel scars. No hepatosplenomegaly. No masses palpable. External genitalia: Normal Vagina: Normal Cervix: Normal Bimanual exam: 8 Week size anteverted uterus. Mobile. Extremities: No edema Assessment & Plan Assessment & Plan narrative: Assessment: 39-year-old 3 para 3 with abnormal uterine bleeding and a 22 mm endometrial lining with hypervascularity Plan: D&C hysteroscopy with possible removal of a polyp, Mirena IUD insertion The risks, benefits, and alternatives to the procedure were explained to the patient. The risks including bleeding, infection, and uterine perforation. She understands these risks and agrees to proceed. A full par Q was held and consent form was signed. Time-Based Coding :: [TOTAL MINUTES] spent with patient and on the chart (including review of chart, obtaining history, exam, reviewing outside data, placing orders, documenting exam and treatment plan, and counseling patient) on [DATE].
--- NOTE | 2024-05-20 14:17 | SUR.OPER ---
Lithotomy on padded OR bed, head on pillow, arms secured on padded arm boards at <90 degrees abduction. Legs secured in padded yellow fins stirrups.
--- NOTE | 2024-05-20 14:41 | PM.GYNOP.1 ---
Operative Date/Time/Diagnoses Date of procedure: 05/20/24 Time of procedure: 14:41 Pre-op diagnosis: Abnormal uterine bleeding Post-op diagnosis: same Procedure & Clinicians Procedure: Procedures Operation Date: 05/20/24 13:15 Actual Procedure Side Surgeon p myosure hysteroscopy Dilation and Curettage Nhi Carolina MD s Intrauterine Device insertion Nhi Carolina MD Indications: 39-year-old with abnormal uterine bleeding Surgeon: Nhi Carolina Anesthesia Type: General (LMA) Operative Notes Findings: 8 week size anteverted uterus Small endocervical polyp Both fallopian tube ostia observed Closure Type: not applicable Specimen(s): endometrial curettings and other (Endocervical polyp) Estimated blood loss (mL): 5 Blood products transfused: none Procedure in detail: After informed consent was obtained, the patient was taken to the operating room where she was placed in the dorsal supine position. After adequate LMA general anesthesia was achieved, she was placed in the dorsal lithotomy position, and prepped and draped in the usual sterile fashion. A time-out was performed. A bivalve speculum was placed into the vagina and the anterior lip of the cervix was grasped with a single-tooth tenaculum. The cervical os was sequentially dilated to the # 7 Hegar dilator. The MyoSure hysteroscope passed easily into the endometrial cavity. Both fallopian tube ostia were observed. There were some vascular areas where samples were taken. Upon removing the hysteroscope there was a small polyp in the endocervix which was also removed. The instruments were removed from the uterus. The Mirena IUD was placed in the fundus of the uterus. The strings were cut to 1.5 cm. The single-tooth tenaculum was removed from the anterior lip of the cervix. The bivalve speculum was removed from the vagina. Sponge, lap, and instrument counts were correct x2. The patient tolerated the procedure well, and was taken to PACU in stable condition. Complications: none Post-operative Condition: stable Disposition: PACU Plan for aftercare: Home after recovery
[2024-05-20] MEDS: ACETAMINOPHEN 325 MG TABLET 975 MG PO (15:06)
== END 2024-05-20 15:58 | disposition home or self-care (01) ==
PROVIDERS: PCP Family Medicine; Referring Provider Obstetrics & Gynecology; Visit Provider Obstetrics & Gynecology
PROC: (CPT 58120; principal; 2024-05-20 13:15)
PROC: (CPT 58558; 2024-05-20 13:15)
DX: N93.9 Abnormal uterine and vaginal bleeding, unspecified (principal); Z30.430 Encounter for insertion of intrauterine contraceptive device; N84.1 Polyp of cervix uteri
CPT/HCPCS: 58558; 58300; C1713; J2250; J2704; J3010; J7298